=== PATIENT | male | born 2000 | race Caucasian/White ===

== ENCOUNTER 2019-01-06 21:41 | Emergency (ER) | payer BC ==
[2019-01-06 22:02] VITALS: BP 127/78; PULSE 68; RESP 17; TEMP 98.3
[2019-01-06] MEDS ORDERED: ACETAMINOPHEN TAB 325 MG TAB PO STA (22:21)
[2019-01-06] MEDS ORDERED: IBUPROFEN 600 MG TAB PO STA (22:21)
--- NOTE | 2019-01-06 22:57 | XR ---
EXAM: XR Left Foot Complete, 3 or More Views CLINICAL HISTORY: Pain TECHNIQUE: Frontal, lateral and oblique views of the left foot. COMPARISON: No relevant prior studies available. FINDINGS: Bones/joints: Unremarkable. No acute fracture. No dislocation. Soft tissues: Unremarkable. No radiopaque foreign body. IMPRESSION: Normal left foot x-rays.
--- NOTE | 2019-01-06 22:57 | XR ---
EXAM: XR Left Ankle Complete, 3 or More Views CLINICAL HISTORY: Pain TECHNIQUE: Frontal, lateral and oblique views of the left ankle. COMPARISON: No relevant prior studies available. FINDINGS: Bones/joints: Unremarkable. No acute fracture. No dislocation. Soft tissues: Unremarkable. IMPRESSION: Normal left ankle x-rays.
--- NOTE | 2019-01-06 23:02 | ED ---
Lower Extremity Injury HPI - General Chief Complaint: Extremity Injury, Lower Stated Complaint: Lft ankle injury Time Seen by Provider: 01/06/19 22:05 Source: patient Mode of arrival: wheelchair Limitations: physical limitation - History of Present Illness Initial Comments: 18-year-old male patient presents to the emergency department today for evaluation of left ankle injury. Patient states he was stepping down out of a camper when he twisted his ankle. Patient states there is no steps and is about a 2 foot drop. Patient denies falling, hitting his head, or any other injuries with this. Patient states he is having pain surrounding the left lateral malleolus. Denies any numbness or tingling to the foot. Denies any previous injury to this ankle. Denies any pain near the knee. Patient denies any headache, neck pain, back pain, chest pain, shortness of breath, dizziness, weakness, abdominal pain, nausea, vomiting, or difficulties with bowel movements or urination. - Related Data Previous Rx's Medication Instructions Recorded Ibuprofen [Motrin] 600 mg PO Q8HR PRN #30 tab 01/06/19 Allergies Allergy/AdvReac Type Severity Reaction Status Date / Time No Known Allergies Allergy Verified 01/06/19 22:12 Review of Systems ROS Statement: Those systems with pertinent positive or pertinent negative responses have been documented in the HPI. ROS Other: All systems not noted in ROS Statement are negative. Past Medical History Past Medical History: Asthma Past Surgical History: No Surgical Hx Reported Smoking Status: Never smoker Past Alcohol Use History: None Reported Past Drug Use History: None Reported General Exam Limitations: physical limitation General appearance: alert, in no apparent distress, other (This is a well- developed, well-nourished adult male patient in no acute distress. Vital signs upon presentation are temperature 98.3F, pulse 68, respirations 17, blood pressure 127/78, pulse ox 99% on room air.) Respiratory exam: Present: normal lung sounds bilaterally. Absent: respiratory distress, wheezes, rales, rhonchi, stridor Cardiovascular Exam: Present: regular rate, normal rhythm, normal heart sounds. Absent: systolic murmur, diastolic murmur, rubs, gallop, clicks Extremities exam: Present: full ROM, tenderness (Tenderness on the left lateral malleolus. Over the dorsal aspect of the left foot.), normal capillary refill, other (There is soft tissue swelling surrounding the left lateral malleolus. There is some tenderness over the dorsal aspect of the left foot. Skin is pink, warm, dry. Cap refills less than 3 seconds. Pedal pulses 2+ and equal bilaterally.). Absent: normal inspection, pedal edema, joint swelling, calf tenderness Neurological exam: Present: alert, oriented X3, CN II-XII intact Psychiatric exam: Present: normal affect, normal mood Skin exam: Present: warm, dry, intact, normal color. Absent: rash Course Vital Signs 01/06/19 21:59 Temperature 98.3 F Pulse Rate 68 Respiratory 17 Rate Blood Pressure 127/78 O2 Sat by Pulse 99 Oximetry Medical Decision Making - Medical Decision Making 18-year-old male patient presents to the emergency department today for evaluation of left ankle pain and swelling. Physical examination did reveal swelling sign the left lateral malleolus. Neurovascular status was intact. X- rays were obtained and showed no acute fracture to the ankle or foot. Patient was placed in ankle stirrup splint. He is instructed regarding rest, ice, elevation. He is instructed take Tylenol Motrin for pain control. He is instructed to follow-up with his primary care physician for recheck in 1-2 days. He is instructed to have repeat x-ray performed in 7-10 days if pain symptoms persist. Return parameters were discussed in detail. Patient verbalizes understanding and agrees with this plan. - Radiology Data Radiology results: report reviewed, image reviewed 3 views of the left foot are obtained. Report reviewed in its entirety. Impression by Dr. Ambriz shows normal left foot x-rays. 3 views of the left ankle are obtained. Report reviewed in its entirety. Impression by Dr. Carson shows normal left ankle x-rays. Disposition Clinical Impression: Left ankle sprain Disposition: HOME SELF-CARE Condition: Good Instructions (If sedation given, give patient instructions): Ankle Sprain (ED), R.I.C.E. Treatment (ED) Additional Instructions: Rest, ice, elevate the left ankle. Keep splint in place for comfort and support. Take Tylenol and Motrin for pain control. Follow-up with your primary care physician for recheck in 1-2 days. Have repeat x-rays performed in 7-10 days if pain symptoms persist. Return to the emergency department immediately for any new, worsening, or concerning symptoms. Prescriptions: Ibuprofen [Motrin] 600 mg PO Q8HR PRN #30 tab PRN Reason: Pain Is patient prescribed a controlled substance at d/c from ED?: No Referrals: None,Stated [Primary Care Provider] - 1-2 days Time of Disposition: 23:01
== END 2019-01-06 23:45 | disposition home or self-care (01) ==
LOC: EC 21:41
DX: S93.402A Sprain of unspecified ligament of left ankle, initial encounter (principal); X50.1XXA Overexertion from prolonged static or awkward postures, initial encounter
CPT/HCPCS: 29515; 99283